=== PATIENT | male | born 1980 | race African-American/Black ===

== ENCOUNTER 2016-09-10 08:32 | Inpatient (IN) | payer OTHER ==
[~2016-09-10] VITALS: Ht 170.2 cm; Wt 103.0 kg
[2016-09-10] VITALS (16 sets, daily range): BP systolic 116–152; BP diastolic 62–90
[~2016-09-10 08:32] MED LIST: METO25TA4 PO
[2016-09-10] MEDS ORDERED: DEXTROSE 50% 25 GM / 50ML DISP.SYRIN. IV PRN (09:15)
[2016-09-10] MEDS ORDERED: 0.9 % SODIUM CHLORIDE 10 ML DISP.SYRIN. IV PRN ×3 (09:15→19:00)
[2016-09-10] MEDS: SODIUM BICARBONATE VIAL 150 MEQ in IV STERILE WATER 1,000 ML IV SCH ×2 (09:53→21:04)
[2016-09-10] MEDS: PIPERACILLIN/TAZOBACTAM 3.375 GM in IV NORMAL SALINE 50ML 50 ML IV SCH ×3 (09:54→18:00)
[2016-09-10] MEDS: MORPHINE SULFATE 2 MG/ML DISP.SYRIN. IV PRN ×2 (11:07→21:24)
--- NOTE | 2016-09-10 11:17 | HP ---
ADMIT DATE: 09/10/2016 CHIEF COMPLAINT: Pancreatitis, DKA. HISTORY OF PRESENT ILLNESS: The patient is a 36-year-old -French gentleman with past medical history of diabetes and pancreatitis, both of which were diagnosed in 2013 with DKA, bringing him to the ICU at the time. He had been doing well in the meantime. However, over the past week or so, he had diffuse abdominal pain, more in the pelvic area, but also mid abdomen. Appetite was off. He denied any nausea or vomiting, denied any diarrhea, denied any fever or chills. However, when he has pain, especially in umbilical area became severe. He presented to his primary care physician, Dr. Guardado, and was referred to [facility] [place], where he was admitted with DKA, pancreatitis. He was found with massive triglyceridemia, which is the underlying cause of his pancreatitis. He was found with massive metabolic acidosis, a pH of 7.1 and CO2 less than 5, prompting bicarbonate drip. However, without improvement, the patient was transferred to [facility] for further management and care. PAST MEDICAL HISTORY: Diabetes mellitus, on oral agents and history of pancreatitis in 2013. FAMILY HISTORY: Diabetes and no GI issues. SOCIAL HISTORY: Lives with his and 2 children, currently a student at [employer]. Smokes marijuana, denies any alcohol use, however, have to nonalcoholic beers last Sunday. Smokes less than 1 pack a day, admits to marijuana. ALLERGIES: No known drug allergies. MEDICATIONS: MAR reconciled with medication list. REVIEW OF SYSTEMS: Still has abdominal pain, worsening now that he is off fentanyl drip. He states he is very hungry, has not eaten since Sunday. Denies any other symptoms in rest of organ system review. PHYSICAL EXAMINATION: VITAL SIGNS: From today show a blood pressure of 122/72, heart rate at 110. He is afebrile. GENERAL: This is a well-nourished, well-developed, 36-year-old -French gentleman, alert and oriented, in no acute distress. HEENT: Shows no scleral icterus. NECK: Supple. LUNGS: Clear to auscultation bilaterally. HEART: Slightly tachycardic. ABDOMEN: Minimal tenderness to palpation in the periumbilical area and some in pelvis bilaterally. EXTREMITIES: Show no edema. SKIN: Warm, soft and dry without any rash. LABORATORY DATA: From this morning at [facility] [place] show a BUN and creatinine of 17 and 1.2, sodium of 140, potassium 5.1, chloride at 106, CO2 at 11, lipase at 1107. CBC with WBC of 16.5, hemoglobin 16.6 and platelets of 155. Calcium at 8.8, mag at 2.7. ASSESSMENT AND PLAN: The patient is a 36-year-old gentleman with severe metabolic acidosis persisting. This may be related to diabetic ketoacidosis versus pancreatitis. He has been on bicarbonate, will continue here. Renal function actually seems to have improved over the past couple of days with fluid hydration. We will obtain renal consult to help manage. Pancreatitis is persistent by numbers. He will be kept n.p.o. We will start a central line and start him on TPN as I suspect this will be prolonged. Etiology is most likely is his hypertriglyceridemia. This will be addressed with oral medications, once he has recovered from the acute injury. Acute kidney injury, possibly on chronic kidney disease secondary to diabetes, question hypertension. Creatinine currently is 1.2. We will monitor labs serially. Prophylaxis will be obtained with IV H2 rosalba as well as Lovenox subcutaneously. MAHOGANY TERAN MD DR: ALYSSA/jasmina JOB#: [id number] / [id number] YANIRA
[2016-09-10] MEDS: INSULIN ASPART 300 UNITS/3 ML INSULN.PEN SQ SCH ×2 (12:00→17:00)
[2016-09-10] MEDS ORDERED: ONDANSETRON PF 4 MG/2 ML VIAL. IV PRN (12:45)
[2016-09-10] MEDS ORDERED: TPN PER PHARMACY MC PRN (12:45)
[2016-09-10] MEDS: HEPARIN PF for SUB-Q USE 5,000 UNIT/0.5 ML VIAL. SQ SCH ×2 (14:00→21:13)
[2016-09-10 17:47] LABS: CALCIUM 8.8 mg/dL (8.5-10.1); CREATININE 1.2 mg/dL (0.7-1.3); GFR 82.9; POTASSIUM 4.4 mmol/L (3.5-5.1)
[2016-09-10] MEDS ORDERED: INSULIN DETEMIR 300 UNITS/3 ML INSULN.PEN. SQ SCH (21:00)
[2016-09-10] MEDS ORDERED: DEXTROSE 70% IV SCH ×8 (22:00)
[2016-09-10] MEDS ORDERED: [UNRECOGNIZED DRUG - OTHER] IV SCH ×8 (22:00)
[2016-09-10] MEDS ORDERED: AMINO ACIDS IV SCH ×8 (22:00)
[2016-09-10] MEDS ORDERED: TOTAL PARENTERAL NUTRITION IV SCH ×8 (22:00)
--- NOTE | 2016-09-10 22:30 | CONS ---
DATE OF CONSULTATION: 09/10/2016 REQUESTING PHYSICIAN: Hospitalist. REASON FOR CONSULTATION: Renal failure and metabolic acidosis. HISTORY OF PRESENT ILLNESS: This is a 36-year-old -Danish with history of pancreatitis secondary to hypertriglyceridemia. He has developed diabetes mellitus, which is apparently insulin dependent. He has been admitted to [facility] with diabetic ketoacidosis and pancreatitis in the setting of massive hypertriglyceridemia. Due to ongoing metabolic acidosis and renal failure, the patient was transferred to this facility. The patient's initial serum bicarbonate was less than 5, pH of 7.1. PAST MEDICAL HISTORY: 1. Diabetes mellitus. 2. Pancreatitis. ALLERGIES: None. MEDICATIONS: Noted. FAMILY HISTORY: Noncontributory other than diabetes mellitus. SOCIAL HISTORY: The patient is , resides with his and 2 children. Student at [employer]. Smokes marijuana. Denies alcohol use, smokes less than a pack a day. Previously incarcerated. REVIEW OF SYSTEMS: No headaches, sinus problem, nasal drainage, epistaxis, change in vision or hearing. No difficulty swallowing. No fever, chills, cough, sputum production, or hemoptysis. No chest pain, shortness of breath, PND or orthopnea, dyspnea on exertion. He has some abdominal discomfort. He has nausea, vomiting. No seizure or malignancies. PHYSICAL EXAMINATION: GENERAL: The patient is awake, conversant. He is tearful. HEENT: Clear. NECK: No increased JVD. No thyromegaly, mass or adenopathy. LUNGS: Clear. CARDIAC: Without S3 or rub. ABDOMEN: Obese, tenderness minimal throughout. EXTREMITIES: Without edema. NEUROLOGIC: Nonfocal, no localizing. PSYCHIATRIC: Tearful. LABORATORY DATA: BUN 17, creatinine 1.2, CO2 of 11, anion gap 14. Lactic ____ 0.6. Calcium 9.3, LDH 833, CK is 746, albumin 1.9, triglycerides 632 and amylase ____ and lipase 63. IMPRESSION: 1. Renal failure -- acute prerenal state. Also may have acute tubular necrosis in the setting of pancreatitis. 2. Metabolic acidosis secondary to renal failure. 3. Rhabdomyolysis. 4. Hypertriglyceridemia. RECOMMENDATIONS: 1. IV fluid administration includes sodium bicarbonate. 2. Maintain glucose control. 3. Elective renal imaging. 4. We will follow. LESLEE REZA MD DR: ERIC/jasmina JOB#: [id number] / [id number]
[2016-09-11] VITALS (11 sets, daily range): BP systolic 110–146; BP diastolic 64–78
[2016-09-11] MEDS: PIPERACILLIN/TAZOBACTAM 3.375 GM in IV NORMAL SALINE 50ML 50 ML IV SCH (05:47)
[2016-09-11] MEDS: HEPARIN PF for SUB-Q USE 5,000 UNIT/0.5 ML VIAL. SQ SCH (05:48)
[2016-09-11 06:05] LABS: BASO # 0.1 x10^3/uL (0.0-0.2); BASO % 1 % (0-3); EOS % 1 % (0-3); HEMATOCRIT 40.7 % (39.0-53.0); HEMOGLOBIN 14.1 g/dL (13.0-17.5); LYMPH # 1.8 x10^3/uL (1.0-4.8); LYMPH % 14 % (24-48); MEAN CORPUSCULAR HEMOGLOBIN 30 pg (25-35); MEAN CORPUSCULAR HGB CONC 35 g/dL (31-37); MEAN CORPUSCULAR VOLUME 86 fL (79-100); MONO % 8 % (0-9); NEUT % 76 % (31-73); PLATELET COUNT 186 x10^3/uL (140-400); RED BLOOD COUNT 4.73 x10^6/uL (4.30-5.70); RED CELL DISTRIBUTION WIDTH 15.4 % (11.5-14.5); WHITE BLOOD COUNT 13.2 x10^3/uL (4.0-11.0)
[2016-09-11 06:33] LABS: ALBUMIN 2.8 g/dL (3.4-5.0); ALBUMIN/GLOBULIN RATIO 0.7 (1.0-1.7); CALCIUM 8.4 mg/dL (8.5-10.1); CREATININE 1.2 mg/dL (0.7-1.3); GFR 82.9; PHOSPHORUS 2.6 mg/dL (2.6-4.7); POTASSIUM 3.9 mmol/L (3.5-5.1); TOTAL BILIRUBIN 0.6 mg/dL (0.2-1.0); TOTAL PROTEIN 6.6 g/dL (6.4-8.2)
[2016-09-11] MEDS: SODIUM BICARBONATE VIAL 150 MEQ in IV STERILE WATER 1,000 ML IV SCH (07:46)
[2016-09-11] MEDS: INSULIN ASPART 300 UNITS/3 ML INSULN.PEN SQ SCH (07:53)
[2016-09-11] MEDS ORDERED: POTASSIUM CL 20MEQ-0.45% NACL 1,000 ML IV SCH (08:45)
--- NOTE | 2016-09-11 09:58 | PDOC ---
PROGRESS NOTES Chief Complaint Chief Complaint Pancreatitis Metabolic acidosis ASSESSMENT AND PLAN: 1. Metabolic acidosis: severe at transfer; resolving post high bicarb gtt. switch to 1/2NS 2. DKA: ketones in urine at initial presentation, with rel mild hyperglycemia ; now resolving 3. Hyperglycemia: not well controlled yet. started on levemir here with ISS. oral meds at home 4. Pancreatitis: 2/2 hypertriglyceridemia. persisting, with some improvement of lipase. cont NPO. of note, had pancreatitis 3 yrs ago 5. Pain control: on fentanyl gtt/[employer] on arrival yesterday; on morphine PRN now 6. Hypertriglyceridemia: start oral meds when full PO established 7. DANIELLA: creat improving with ongoing IVF 8. Tachycardia: mild. with stable BPs, monitor for now. ?reactive 9. Prophylaxis: lovenox, PPI 10 Psych: insisting on eating or threatening to leave AMA. volatile temper. transfer service to Dr Romeo History of Present Illness History of Present Illness throwing temper tantrum over eating, feeling diss.ed because he was told it would be stupid of him to destroy the improvements he has made over the past 24hrs with eating too soon. refusing exam Vitals Vitals Vital Signs Date Time Temp Pulse Resp B/P (MAP) Pulse Ox O2 Delivery O2 Flow Rate FiO2 09/11/16 08:42 108 20 115/64 (81) 98 Room Air 09/11/16 07:00 97.9 97.9 Physical Exam Physical Exam refusing exam Lungs: Other Labs LABS Laboratory Tests Test 09/10/16 12:14 09/10/16 15:15 09/10/16 17:16 09/10/16 21:06 Glucose (Fingerstick) 167 mg/dL (70-99) 192 mg/dL (70-99) 132 mg/dL (70-99) Sodium Level 139 mmol/L (136-145) Potassium Level 4.4 mmol/L (3.5-5.1) Chloride Level 102 mmol/L (98-107) Carbon Dioxide Level 20 mmol/L (21-32) Anion Gap 17 (6-14) Blood Urea Nitrogen 18 mg/dL (8-26) Creatinine 1.2 mg/dL (0.7-1.3) Estimated GFR (Cockcroft-Gault) 82.9 Glucose Level 200 mg/dL (70-99) Calcium Level 8.8 mg/dL (8.5-10.1) Test 09/11/16 05:55 09/11/16 07:50 White Blood Count 13.2 x10^3/uL (4.0-11.0) Red Blood Count 4.73 x10^6/uL (4.30-5.70) Hemoglobin 14.1 g/dL (13.0-17.5) Hematocrit 40.7 % (39.0-53.0) Mean Corpuscular Volume 86 fL (79-100) Mean Corpuscular Hemoglobin 30 pg (25-35) Mean Corpuscular Hemoglobin Concent 35 g/dL (31-37) Red Cell Distribution Width 15.4 % (11.5-14.5) Platelet Count 186 x10^3/uL (140-400) Neutrophils (%) (Auto) 76 % (31-73) Lymphocytes (%) (Auto) 14 % (24-48) Monocytes (%) (Auto) 8 % (0-9) Eosinophils (%) (Auto) 1 % (0-3) Basophils (%) (Auto) 1 % (0-3) Neutrophils # (Auto) 10.1 x10^3uL (1.8-7.7) Lymphocytes # (Auto) 1.8 x10^3/uL (1.0-4.8) Monocytes # (Auto) 1.0 x10^3/uL (0.0-1.1) Eosinophils # (Auto) 0.2 x10^3/uL (0.0-0.7) Basophils # (Auto) 0.1 x10^3/uL (0.0-0.2) Sodium Level 137 mmol/L (136-145) Potassium Level 3.9 mmol/L (3.5-5.1) Chloride Level 99 mmol/L (98-107) Carbon Dioxide Level 24 mmol/L (21-32) Anion Gap 14 (6-14) Blood Urea Nitrogen 19 mg/dL (8-26) Creatinine 1.2 mg/dL (0.7-1.3) Estimated GFR (Cockcroft-Gault) 82.9 BUN/Creatinine Ratio 16 (6-20) Glucose Level 217 mg/dL (70-99) Calcium Level 8.4 mg/dL (8.5-10.1) Phosphorus Level 2.6 mg/dL (2.6-4.7) Magnesium Level 2.0 mg/dL (1.8-2.4) Total Bilirubin 0.6 mg/dL (0.2-1.0) Aspartate Amino Transf (AST/SGOT) 11 U/L (15-37) Alanine Aminotransferase (ALT/SGPT) 22 U/L (16-63) Alkaline Phosphatase 71 U/L (46-116) Total Protein 6.6 g/dL (6.4-8.2) Albumin 2.8 g/dL (3.4-5.0) Albumin/Globulin Ratio 0.7 (1.0-1.7) Lipase 771 U/L (73-393) Glucose (Fingerstick) 271 mg/dL (70-99) Comment Review of Relevant I have reviewed the following items verónica (where applicable) has been applied. Labs Laboratory Tests Test 09/10/16 08:55 09/10/16 12:14 09/10/16 15:15 09/10/16 17:16 Glucose (Fingerstick) 145 mg/dL (70-99) 167 mg/dL (70-99) 192 mg/dL (70-99) Sodium Level 139 mmol/L (136-145) Potassium Level 4.4 mmol/L (3.5-5.1) Chloride Level 102 mmol/L (98-107) Carbon Dioxide Level 20 mmol/L (21-32) Anion Gap 17 (6-14) Blood Urea Nitrogen 18 mg/dL (8-26) Creatinine 1.2 mg/dL (0.7-1.3) Estimated GFR (Cockcroft-Gault) 82.9 Glucose Level 200 mg/dL (70-99) Calcium Level 8.8 mg/dL (8.5-10.1) Test 09/10/16 21:06 09/11/16 05:55 09/11/16 07:50 Glucose (Fingerstick) 132 mg/dL (70-99) 271 mg/dL (70-99) White Blood Count 13.2 x10^3/uL (4.0-11.0) Red Blood Count 4.73 x10^6/uL (4.30-5.70) Hemoglobin 14.1 g/dL (13.0-17.5) Hematocrit 40.7 % (39.0-53.0) Mean Corpuscular Volume 86 fL (79-100) Mean Corpuscular Hemoglobin 30 pg (25-35) Mean Corpuscular Hemoglobin Concent 35 g/dL (31-37) Red Cell Distribution Width 15.4 % (11.5-14.5) Platelet Count 186 x10^3/uL (140-400) Neutrophils (%) (Auto) 76 % (31-73) Lymphocytes (%) (Auto) 14 % (24-48) Monocytes (%) (Auto) 8 % (0-9) Eosinophils (%) (Auto) 1 % (0-3) Basophils (%) (Auto) 1 % (0-3) Neutrophils # (Auto) 10.1 x10^3uL (1.8-7.7) Lymphocytes # (Auto) 1.8 x10^3/uL (1.0-4.8) Monocytes # (Auto) 1.0 x10^3/uL (0.0-1.1) Eosinophils # (Auto) 0.2 x10^3/uL (0.0-0.7) Basophils # (Auto) 0.1 x10^3/uL (0.0-0.2) Sodium Level 137 mmol/L (136-145) Potassium Level 3.9 mmol/L (3.5-5.1) Chloride Level 99 mmol/L (98-107) Carbon Dioxide Level 24 mmol/L (21-32) Anion Gap 14 (6-14) Blood Urea Nitrogen 19 mg/dL (8-26) Creatinine 1.2 mg/dL (0.7-1.3) Estimated GFR (Cockcroft-Gault) 82.9 BUN/Creatinine Ratio 16 (6-20) Glucose Level 217 mg/dL (70-99) Calcium Level 8.4 mg/dL (8.5-10.1) Phosphorus Level 2.6 mg/dL (2.6-4.7) Magnesium Level 2.0 mg/dL (1.8-2.4) Total Bilirubin 0.6 mg/dL (0.2-1.0) Aspartate Amino Transf (AST/SGOT) 11 U/L (15-37) Alanine Aminotransferase (ALT/SGPT) 22 U/L (16-63) Alkaline Phosphatase 71 U/L (46-116) Total Protein 6.6 g/dL (6.4-8.2) Albumin 2.8 g/dL (3.4-5.0) Albumin/Globulin Ratio 0.7 (1.0-1.7) Lipase 771 U/L (73-393) Laboratory Tests Test 09/10/16 12:14 09/10/16 15:15 09/10/16 17:16 09/10/16 21:06 Glucose (Fingerstick) 167 mg/dL (70-99) 192 mg/dL (70-99) 132 mg/dL (70-99) Sodium Level 139 mmol/L (136-145) Potassium Level 4.4 mmol/L (3.5-5.1) Chloride Level 102 mmol/L (98-107) Carbon Dioxide Level 20 mmol/L (21-32) Anion Gap 17 (6-14) Blood Urea Nitrogen 18 mg/dL (8-26) Creatinine 1.2 mg/dL (0.7-1.3) Estimated GFR (Cockcroft-Gault) 82.9 Glucose Level 200 mg/dL (70-99) Calcium Level 8.8 mg/dL (8.5-10.1) Test 09/11/16 05:55 09/11/16 07:50 White Blood Count 13.2 x10^3/uL (4.0-11.0) Red Blood Count 4.73 x10^6/uL (4.30-5.70) Hemoglobin 14.1 g/dL (13.0-17.5) Hematocrit 40.7 % (39.0-53.0) Mean Corpuscular Volume 86 fL (79-100) Mean Corpuscular Hemoglobin 30 pg (25-35) Mean Corpuscular Hemoglobin Concent 35 g/dL (31-37) Red Cell Distribution Width 15.4 % (11.5-14.5) Platelet Count 186 x10^3/uL (140-400) Neutrophils (%) (Auto) 76 % (31-73) Lymphocytes (%) (Auto) 14 % (24-48) Monocytes (%) (Auto) 8 % (0-9) Eosinophils (%) (Auto) 1 % (0-3) Basophils (%) (Auto) 1 % (0-3) Neutrophils # (Auto) 10.1 x10^3uL (1.8-7.7) Lymphocytes # (Auto) 1.8 x10^3/uL (1.0-4.8) Monocytes # (Auto) 1.0 x10^3/uL (0.0-1.1) Eosinophils # (Auto) 0.2 x10^3/uL (0.0-0.7) Basophils # (Auto) 0.1 x10^3/uL (0.0-0.2) Sodium Level 137 mmol/L (136-145) Potassium Level 3.9 mmol/L (3.5-5.1) Chloride Level 99 mmol/L (98-107) Carbon Dioxide Level 24 mmol/L (21-32) Anion Gap 14 (6-14) Blood Urea Nitrogen 19 mg/dL (8-26) Creatinine 1.2 mg/dL (0.7-1.3) Estimated GFR (Cockcroft-Gault) 82.9 BUN/Creatinine Ratio 16 (6-20) Glucose Level 217 mg/dL (70-99) Calcium Level 8.4 mg/dL (8.5-10.1) Phosphorus Level 2.6 mg/dL (2.6-4.7) Magnesium Level 2.0 mg/dL (1.8-2.4) Total Bilirubin 0.6 mg/dL (0.2-1.0) Aspartate Amino Transf (AST/SGOT) 11 U/L (15-37) Alanine Aminotransferase (ALT/SGPT) 22 U/L (16-63) Alkaline Phosphatase 71 U/L (46-116) Total Protein 6.6 g/dL (6.4-8.2) Albumin 2.8 g/dL (3.4-5.0) Albumin/Globulin Ratio 0.7 (1.0-1.7) Lipase 771 U/L (73-393) Glucose (Fingerstick) 271 mg/dL (70-99) Medications Current Medications Heparin Sodium (Porcine) 5,000 unit Q8HRS SQ Last administered on 09/11/16t 05: 48; Start 09/10/16 at 14:00 Sodium Chloride (Normal Saline Flush) 3 ml QSHIFT PRN IV AFTER MEDS AND BLOOD DRAWS; Start 09/10/16 at 09:15 Morphine Sulfate 2 mg PRN Q1HR PRN IV PAIN Last administered on 09/10/16 21:24 ; Start 09/10/16 at 09:15 Insulin Aspart (NovoLOG) 0-9 UNITS TIDWMEALS SQ Last administered on 09/11/16 07:53; Start 09/10/16 at 12:00 Dextrose (Dextrose 50%-Water Syringe) 12.5 gm PRN Q15MIN PRN IV SEE COMMENTS; Start 09/10/16 at 09:15 Piperacillin Sod/ Tazobactam Sod 3.375 gm/Sodium Chloride 50 ml @ 100 mls/hr Q6HRS IV Last administered on 09/11/16 05:47; Start 09/10/16 at 10:00 Sodium Bicarbonate 150 meq/Sterile Water 1,150 ml @ 125 mls/hr Q9H12M IV Last administered on 09/11/16 07:46; Start 09/10/16 at 10:00; Stop 09/11/16 at 08:40 ; Status DC Info 1 each PRN DAILY PRN MC SEE COMMENTS Last administered on 09/10/16 14:54 ; Start 09/10/16 at 12:45 Lorazepam (Ativan) 0.5 mg Q6HRS PRN IV ANXIETY / AGITATION Last administered on 09/10/16 14:10; Start 09/10/16 at 12:45 Ondansetron HCl (Zofran) 4 mg PRN Q6HRS PRN IV NAUSEA/VOMITING; Start 09/10/16 at 12:45 Sodium Chloride 90 meq/Sodium Phosphate 10 mmol/ Magnesium Sulfate 5 meq/ Calcium Gluconate 10 meq/ Multivitamins 10 ml/Chromium/ Copper/Manganese/ Seleni /Zn 1 ml/ Total Parenteral Nutrition/Amino Acids/Dextrose 1,512 ml @ 63 mls/hr TPN CONT IV Last administered on 09/10/16 21:04; Start 09/10/16 at 22:00; Stop 09/11/16 at 21:59 Sodium Chloride (Normal Saline Flush) 10 ml QSHIFT PRN IV AFTER MEDS AND BLOOD DRAWS; Start 09/10/16 at 19:00 Sodium Chloride (Normal Saline Flush) 20 ml QSHIFT PRN IV AFTER MEDS AND BLOOD DRAWS; Start 09/10/16 at 19:00 Insulin Detemir (Levemir) 10 units QHS SQ ; Start 09/10/16 at 21:00 Potassium Chloride/Sodium Chloride 1,000 ml @ 75 mls/hr [id number] IV Last administered on 09/11/16t 09:38; Start 09/11/16 at 08:45 Active Scripts Active Reported Metoprolol Tartrate 25 Mg Tablet 1 Tab PO BID Vitals/I & O Vital Sign - Last 24 Hours 09/10/16 09/10/16 09/10/16 09/10/16 10:00 11:00 11:07 12:00 Pulse 116 96 108 Resp 20 22 20 22 B/P (MAP) 152/87 (108) 138/86 (103) 138/90 (106) O2 Delivery Room Air Room Air Room Air 09/10/16 09/10/16 09/10/16 09/10/16 13:00 14:00 15:00 16:00 Temp 97.8 97.8 Pulse 90 97 98 108 Resp 22 B/P (MAP) 132/86 (101) 137/81 (99) 117/62 (80) 137/72 (93) O2 Delivery Room Air Room Air Room Air 09/10/16 09/10/16 09/10/16 09/10/16 17:00 18:00 19:00 20:00 Temp 98.0 98.0 Pulse 109 104 103 98 Resp 20 22 20 20 B/P (MAP) 134/85 (101) 116/74 (88) 136/75 (95) 133/70 (91) Pulse Ox 99 99 O2 Delivery Room Air Room Air Room Air 09/10/16 09/10/16 09/10/16 09/10/16 21:00 21:24 21:54 22:00 Pulse 115 103 Resp 20 18 18 20 B/P (MAP) 130/69 (89) 116/82 (93) Pulse Ox 99 99 O2 Delivery Room Air Room Air Room Air Room Air 09/10/16 09/10/16 09/11/16 09/11/16 23:00 23:59 00:00 01:00 Temp 98.2 98.2 Pulse 99 100 99 Resp 20 20 20 B/P (MAP) 122/82 (95) 116/78 (91) 146/75 (98) Pulse Ox 99 97 99 O2 Delivery Room Air Room Air Room Air Room Air 09/11/16 09/11/16 09/11/16 09/11/16 02:00 03:00 04:00 04:00 Temp 98.3 98.3 Pulse 96 98 98 Resp 20 20 20 B/P (MAP) 133/70 (91) 132/64 (86) 116/68 (84) Pulse Ox 99 99 99 O2 Delivery Room Air Room Air Room Air Room Air 09/11/16 09/11/16 09/11/16 09/11/16 05:00 06:00 07:00 08:19 Temp 97.9 97.9 Pulse 98 88 102 Resp 20 20 18 B/P (MAP) 117/64 (81) 128/65 (86) 110/66 (81) Pulse Ox 99 99 97 O2 Delivery Room Air Room Air Room Air Room Air 09/11/16 08:42 Pulse 108 Resp 20 B/P (MAP) 115/64 (81) Pulse Ox 98 O2 Delivery Room Air Intake and Output 09/10/16 09/10/16 09/11/16 15:00 23:00 07:00 Intake Total 100 ml 90 ml 2550 ml Output Total 900 ml 1900 ml 1800 ml Balance -800 ml -1810 ml 750 ml MAHOGANY TERAN MD September 11, 2016 09:58
--- NOTE | 2016-09-11 10:10 | PDOC ---
SUBJECTIVE ROS DANIELLA/ Met Acidosis Doing well OBJECTIVE Vital Signs Vital Signs Date Time Temp Pulse Resp B/P (MAP) Pulse Ox O2 Delivery O2 Flow Rate FiO2 09/11/16 09:46 103 20 140/71 (94) 98 Room Air 09/11/16 07:00 97.9 97.9 I & 0 Intake and Output 09/11/16 07:00 Intake Total 2740 ml Output Total 4600 ml Balance -1860 ml Intake Oral 1390 ml IV Total 1350 ml Output Urine Total 4600 ml # Voids 1 PHYSICAL EXAM Physical Exam General Appearance: Awake: Alert Oriented x 2 Neck: No JVD or JVP Chest: CTA Tyson Heart: S1 S2 Abdomen - Soft Min TTP Extremities - No Edema DIAGNOSIS/ASSESSMENT Assessment & Plan DANIELLA - Resolved MEt ACidosis - watch off of Bicarb containing IVF - do not anticipate reccurance since FSBS as better now TPN defer to Pharmacy Will sign off - pl call with Qs Problems: COMMENT/RELEVANT DATA Meds Current Medications Medications (Trade) Dose Ordered Sig/Marifer Start Time Stop Time Status Last Admin Dose Admin Dextrose (Dextrose 50%-Water Syringe) 12.5 gm PRN Q15MIN PRN 09/10/16 09:15 Heparin Sodium (Porcine) 5,000 unit Q8HRS 09/10/16 14:00 09/11/16 05:48 5,000 UNIT Info 1 each PRN DAILY PRN 09/10/16 12:45 09/10/16 14:54 1 EACH Insulin Aspart (NovoLOG) 0-9 UNITS TIDWMEALS 09/10/16 12:00 09/11/16 07:53 7 UNITS Insulin Detemir (Levemir) 10 units QHS 09/10/16 21:00 Lorazepam (Ativan) 0.5 mg Q6HRS PRN 09/10/16 12:45 09/10/16 14:10 0.5 MG Morphine Sulfate 2 mg PRN Q1HR PRN 09/10/16 09:15 09/10/16 21:24 2 MG Ondansetron HCl (Zofran) 4 mg PRN Q6HRS PRN 09/10/16 12:45 Piperacillin Sod/ Tazobactam Sod 3.375 gm/Sodium Chloride 50 ml @ 100 mls/hr Q6HRS 09/10/16 10:00 09/11/16 05:47 100 MLS/HR Potassium Chloride/Sodium Chloride 1,000 ml @ 75 mls/hr [id number] 09/11/16 08:45 09/11/16 09:38 75 MLS/HR Sodium Bicarbonate 150 meq/Sterile Water 1,150 ml @ 125 mls/hr Q9H12M 09/10/16 10:00 09/11/16 08:40 DC 09/11/16 07:46 125 MLS/HR Sodium Chloride (Normal Saline Flush) 20 ml QSHIFT PRN 09/10/16 19:00 Sodium Chloride 90 meq/Sodium Phosphate 10 mmol/ Magnesium Sulfate 5 meq/Calcium Gluconate 10 meq/ Multivitamins 10 ml/Chromium/ Copper/Manganese/ Seleni/Zn 1 ml/ Total Parenteral Nutrition/Amino Acids/Dextrose 1,512 ml @ 63 mls/hr TPN CONT 09/10/16 22:00 09/11/16 21:59 09/10/16 21:04 63 MLS/HR Lab Laboratory Tests Test 09/10/16 12:14 09/10/16 15:15 09/10/16 17:16 09/10/16 21:06 Glucose (Fingerstick) 167 mg/dL (70-99) 192 mg/dL (70-99) 132 mg/dL (70-99) Sodium Level 139 mmol/L (136-145) Potassium Level 4.4 mmol/L (3.5-5.1) Chloride Level 102 mmol/L (98-107) Carbon Dioxide Level 20 mmol/L (21-32) Anion Gap 17 (6-14) Blood Urea Nitrogen 18 mg/dL (8-26) Creatinine 1.2 mg/dL (0.7-1.3) Estimated GFR (Cockcroft-Gault) 82.9 Glucose Level 200 mg/dL (70-99) Calcium Level 8.8 mg/dL (8.5-10.1) Test 09/11/16 05:55 09/11/16 07:50 White Blood Count 13.2 x10^3/uL (4.0-11.0) Red Blood Count 4.73 x10^6/uL (4.30-5.70) Hemoglobin 14.1 g/dL (13.0-17.5) Hematocrit 40.7 % (39.0-53.0) Mean Corpuscular Volume 86 fL (79-100) Mean Corpuscular Hemoglobin 30 pg (25-35) Mean Corpuscular Hemoglobin Concent 35 g/dL (31-37) Red Cell Distribution Width 15.4 % (11.5-14.5) Platelet Count 186 x10^3/uL (140-400) Neutrophils (%) (Auto) 76 % (31-73) Lymphocytes (%) (Auto) 14 % (24-48) Monocytes (%) (Auto) 8 % (0-9) Eosinophils (%) (Auto) 1 % (0-3) Basophils (%) (Auto) 1 % (0-3) Neutrophils # (Auto) 10.1 x10^3uL (1.8-7.7) Lymphocytes # (Auto) 1.8 x10^3/uL (1.0-4.8) Monocytes # (Auto) 1.0 x10^3/uL (0.0-1.1) Eosinophils # (Auto) 0.2 x10^3/uL (0.0-0.7) Basophils # (Auto) 0.1 x10^3/uL (0.0-0.2) Sodium Level 137 mmol/L (136-145) Potassium Level 3.9 mmol/L (3.5-5.1) Chloride Level 99 mmol/L (98-107) Carbon Dioxide Level 24 mmol/L (21-32) Anion Gap 14 (6-14) Blood Urea Nitrogen 19 mg/dL (8-26) Creatinine 1.2 mg/dL (0.7-1.3) Estimated GFR (Cockcroft-Gault) 82.9 BUN/Creatinine Ratio 16 (6-20) Glucose Level 217 mg/dL (70-99) Calcium Level 8.4 mg/dL (8.5-10.1) Phosphorus Level 2.6 mg/dL (2.6-4.7) Magnesium Level 2.0 mg/dL (1.8-2.4) Total Bilirubin 0.6 mg/dL (0.2-1.0) Aspartate Amino Transf (AST/SGOT) 11 U/L (15-37) Alanine Aminotransferase (ALT/SGPT) 22 U/L (16-63) Alkaline Phosphatase 71 U/L (46-116) Total Protein 6.6 g/dL (6.4-8.2) Albumin 2.8 g/dL (3.4-5.0) Albumin/Globulin Ratio 0.7 (1.0-1.7) Lipase 771 U/L (73-393) Glucose (Fingerstick) 271 mg/dL (70-99) TAMERA CURTIS MD September 11, 2016 10:10
--- NOTE | 2016-09-11 11:15 | PDOC ---
PROGRESS NOTES Subjective Subjective Irate Patient, very upset Objective Objective Vital Signs Date Time Temp Pulse Resp B/P (MAP) Pulse Ox O2 Delivery O2 Flow Rate FiO2 09/11/16 09:46 103 20 140/71 (94) 98 Room Air 09/11/16 07:00 97.9 97.9 Intake and Output 09/11/16 07:00 Intake Total 2740 ml Output Total 4600 ml Balance -1860 ml Intake Oral 1390 ml IV Total 1350 ml Output Urine Total 4600 ml # Voids 1 Physical Exam Physical Exam obese, gynecomastia no rash General: Other (agitated, tangential) Psych/Mental Status: Other (agitated, animated) Assessment Assessment ASSESSMENT AND PLAN: 1. Metabolic acidosis: severe 2. DKA: ketones in urine at initial presentation, with rel mild hyperglycemia ; now resolving 3. Hyperglycemia: not well controlled yet. started on levemir here with ISS. oral meds at home 4. Pancreatitis: 2/2 hypertriglyceridemia. persisting, with some improvement of lipase. cont NPO. of note, had pancreatitis 3 yrs ago 5. Pain control: on fentanyl gtt/[employer] on arrival yesterday; on morphine PRN now 6. Hypertriglyceridemia: start oral meds when full PO established 7. DANIELLA: creat improving with ongoing IVF 8. Tachycardia: mild. with stable BPs, monitor for now. 9 Psych: leave AMA. volatile temper. Plan Plan of Care I discussed with patient and family for over 30 minutes in ICU, 2 children, his and mother were in the room I was pretty much yelled at the entire time about how we "aren't doing anything " "aren't compassionate" Patient was angry and would not stop swearing in front of his elementary school- age children despite me asking him not to do so. I worked to find common ground and offered to change medical management in order for him to stay, he was more angry when I tried to do this. (this was a really awful 35 minutes for me) Time > 45min, critical care, pt will likely leave AMA, unacceptable risk of discussed with pt and family Comment Review of Relevant I have reviewed the following items verónica (where applicable) has been applied. Labs Laboratory Tests Test 09/10/16 08:55 09/10/16 12:14 09/10/16 15:15 09/10/16 17:16 Glucose (Fingerstick) 145 mg/dL (70-99) 167 mg/dL (70-99) 192 mg/dL (70-99) Sodium Level 139 mmol/L (136-145) Potassium Level 4.4 mmol/L (3.5-5.1) Chloride Level 102 mmol/L (98-107) Carbon Dioxide Level 20 mmol/L (21-32) Anion Gap 17 (6-14) Blood Urea Nitrogen 18 mg/dL (8-26) Creatinine 1.2 mg/dL (0.7-1.3) Estimated GFR (Cockcroft-Gault) 82.9 Glucose Level 200 mg/dL (70-99) Calcium Level 8.8 mg/dL (8.5-10.1) Test 09/10/16 21:06 09/11/16 05:55 09/11/16 07:50 Glucose (Fingerstick) 132 mg/dL (70-99) 271 mg/dL (70-99) White Blood Count 13.2 x10^3/uL (4.0-11.0) Red Blood Count 4.73 x10^6/uL (4.30-5.70) Hemoglobin 14.1 g/dL (13.0-17.5) Hematocrit 40.7 % (39.0-53.0) Mean Corpuscular Volume 86 fL (79-100) Mean Corpuscular Hemoglobin 30 pg (25-35) Mean Corpuscular Hemoglobin Concent 35 g/dL (31-37) Red Cell Distribution Width 15.4 % (11.5-14.5) Platelet Count 186 x10^3/uL (140-400) Neutrophils (%) (Auto) 76 % (31-73) Lymphocytes (%) (Auto) 14 % (24-48) Monocytes (%) (Auto) 8 % (0-9) Eosinophils (%) (Auto) 1 % (0-3) Basophils (%) (Auto) 1 % (0-3) Neutrophils # (Auto) 10.1 x10^3uL (1.8-7.7) Lymphocytes # (Auto) 1.8 x10^3/uL (1.0-4.8) Monocytes # (Auto) 1.0 x10^3/uL (0.0-1.1) Eosinophils # (Auto) 0.2 x10^3/uL (0.0-0.7) Basophils # (Auto) 0.1 x10^3/uL (0.0-0.2) Sodium Level 137 mmol/L (136-145) Potassium Level 3.9 mmol/L (3.5-5.1) Chloride Level 99 mmol/L (98-107) Carbon Dioxide Level 24 mmol/L (21-32) Anion Gap 14 (6-14) Blood Urea Nitrogen 19 mg/dL (8-26) Creatinine 1.2 mg/dL (0.7-1.3) Estimated GFR (Cockcroft-Gault) 82.9 BUN/Creatinine Ratio 16 (6-20) Glucose Level 217 mg/dL (70-99) Calcium Level 8.4 mg/dL (8.5-10.1) Phosphorus Level 2.6 mg/dL (2.6-4.7) Magnesium Level 2.0 mg/dL (1.8-2.4) Total Bilirubin 0.6 mg/dL (0.2-1.0) Aspartate Amino Transf (AST/SGOT) 11 U/L (15-37) Alanine Aminotransferase (ALT/SGPT) 22 U/L (16-63) Alkaline Phosphatase 71 U/L (46-116) Total Protein 6.6 g/dL (6.4-8.2) Albumin 2.8 g/dL (3.4-5.0) Albumin/Globulin Ratio 0.7 (1.0-1.7) Lipase 771 U/L (73-393) Laboratory Tests Test 09/10/16 12:14 09/10/16 15:15 09/10/16 17:16 09/10/16 21:06 Glucose (Fingerstick) 167 mg/dL (70-99) 192 mg/dL (70-99) 132 mg/dL (70-99) Sodium Level 139 mmol/L (136-145) Potassium Level 4.4 mmol/L (3.5-5.1) Chloride Level 102 mmol/L (98-107) Carbon Dioxide Level 20 mmol/L (21-32) Anion Gap 17 (6-14) Blood Urea Nitrogen 18 mg/dL (8-26) Creatinine 1.2 mg/dL (0.7-1.3) Estimated GFR (Cockcroft-Gault) 82.9 Glucose Level 200 mg/dL (70-99) Calcium Level 8.8 mg/dL (8.5-10.1) Test 09/11/16 05:55 09/11/16 07:50 White Blood Count 13.2 x10^3/uL (4.0-11.0) Red Blood Count 4.73 x10^6/uL (4.30-5.70) Hemoglobin 14.1 g/dL (13.0-17.5) Hematocrit 40.7 % (39.0-53.0) Mean Corpuscular Volume 86 fL (79-100) Mean Corpuscular Hemoglobin 30 pg (25-35) Mean Corpuscular Hemoglobin Concent 35 g/dL (31-37) Red Cell Distribution Width 15.4 % (11.5-14.5) Platelet Count 186 x10^3/uL (140-400) Neutrophils (%) (Auto) 76 % (31-73) Lymphocytes (%) (Auto) 14 % (24-48) Monocytes (%) (Auto) 8 % (0-9) Eosinophils (%) (Auto) 1 % (0-3) Basophils (%) (Auto) 1 % (0-3) Neutrophils # (Auto) 10.1 x10^3uL (1.8-7.7) Lymphocytes # (Auto) 1.8 x10^3/uL (1.0-4.8) Monocytes # (Auto) 1.0 x10^3/uL (0.0-1.1) Eosinophils # (Auto) 0.2 x10^3/uL (0.0-0.7) Basophils # (Auto) 0.1 x10^3/uL (0.0-0.2) Sodium Level 137 mmol/L (136-145) Potassium Level 3.9 mmol/L (3.5-5.1) Chloride Level 99 mmol/L (98-107) Carbon Dioxide Level 24 mmol/L (21-32) Anion Gap 14 (6-14) Blood Urea Nitrogen 19 mg/dL (8-26) Creatinine 1.2 mg/dL (0.7-1.3) Estimated GFR (Cockcroft-Gault) 82.9 BUN/Creatinine Ratio 16 (6-20) Glucose Level 217 mg/dL (70-99) Calcium Level 8.4 mg/dL (8.5-10.1) Phosphorus Level 2.6 mg/dL (2.6-4.7) Magnesium Level 2.0 mg/dL (1.8-2.4) Total Bilirubin 0.6 mg/dL (0.2-1.0) Aspartate Amino Transf (AST/SGOT) 11 U/L (15-37) Alanine Aminotransferase (ALT/SGPT) 22 U/L (16-63) Alkaline Phosphatase 71 U/L (46-116) Total Protein 6.6 g/dL (6.4-8.2) Albumin 2.8 g/dL (3.4-5.0) Albumin/Globulin Ratio 0.7 (1.0-1.7) Lipase 771 U/L (73-393) Glucose (Fingerstick) 271 mg/dL (70-99) Medications Current Medications Heparin Sodium (Porcine) 5,000 unit Q8HRS SQ Last administered on 09/11/16 05: 48; Start 09/10/16 at 14:00 Sodium Chloride (Normal Saline Flush) 3 ml QSHIFT PRN IV AFTER MEDS AND BLOOD DRAWS; Start 09/10/16 at 09:15 Morphine Sulfate 2 mg PRN Q1HR PRN IV PAIN Last administered on 09/10/16 21:24 ; Start 09/10/16 at 09:15 Insulin Aspart (NovoLOG) 0-9 UNITS TIDWMEALS SQ Last administered on 09/11/16 07:53; Start 09/10/16 at 12:00 Dextrose (Dextrose 50%-Water Syringe) 12.5 gm PRN Q15MIN PRN IV SEE COMMENTS; Start 09/10/16 at 09:15 Piperacillin Sod/ Tazobactam Sod 3.375 gm/Sodium Chloride 50 ml @ 100 mls/hr Q6HRS IV Last administered on 09/11/16 05:47; Start 09/10/16 at 10:00 Sodium Bicarbonate 150 meq/Sterile Water 1,150 ml @ 125 mls/hr Q9H12M IV Last administered on 09/11/16 07:46; Start 09/10/16 at 10:00; Stop 09/11/16 at 08:40 ; Status DC Info 1 each PRN DAILY PRN MC SEE COMMENTS Last administered on 09/10/16 14:54 ; Start 09/10/16 at 12:45 Lorazepam (Ativan) 0.5 mg Q6HRS PRN IV ANXIETY / AGITATION Last administered on 09/10/16 14:10; Start 09/10/16 at 12:45 Ondansetron HCl (Zofran) 4 mg PRN Q6HRS PRN IV NAUSEA/VOMITING; Start 09/10/16 at 12:45 Sodium Chloride 90 meq/Sodium Phosphate 10 mmol/ Magnesium Sulfate 5 meq/ Calcium Gluconate 10 meq/ Multivitamins 10 ml/Chromium/ Copper/Manganese/ Seleni /Zn 1 ml/ Total Parenteral Nutrition/Amino Acids/Dextrose 1,512 ml @ 63 mls/hr TPN CONT IV Last administered on 09/10/16 21:04; Start 09/10/16 at 22:00; Stop 09/11/16 at 21:59 Sodium Chloride (Normal Saline Flush) 10 ml QSHIFT PRN IV AFTER MEDS AND BLOOD DRAWS; Start 09/10/16 at 19:00 Sodium Chloride (Normal Saline Flush) 20 ml QSHIFT PRN IV AFTER MEDS AND BLOOD DRAWS; Start 09/10/16 at 19:00 Insulin Detemir (Levemir) 10 units QHS SQ ; Start 09/10/16 at 21:00 Potassium Chloride/Sodium Chloride 1,000 ml @ 75 mls/hr [id number] IV Last administered on 09/11/16 09:38; Start 09/11/16 at 08:45; Stop 09/11/16 at 10:10 ; Status DC Active Scripts Active Reported Metoprolol Tartrate 25 Mg Tablet 1 Tab PO BID Vitals/I & O Vital Sign - Last 24 Hours 09/10/16 09/10/16 09/10/16 09/10/16 12:00 13:00 14:00 15:00 Pulse 108 90 97 98 Resp 22 22 22 B/P (MAP) 138/90 (106) 132/86 (101) 137/81 (99) 117/62 (80) O2 Delivery Room Air Room Air Room Air 09/10/16 09/10/16 09/10/16 09/10/16 16:00 17:00 18:00 19:00 Temp 97.8 98.0 97.8 98.0 Pulse 108 109 104 103 Resp 22 20 22 20 B/P (MAP) 137/72 (93) 134/85 (101) 116/74 (88) 136/75 (95) Pulse Ox 99 O2 Delivery Room Air Room Air Room Air 09/10/16 09/10/16 09/10/16 09/10/16 20:00 21:00 21:24 21:54 Pulse 98 115 Resp 20 20 18 18 B/P (MAP) 133/70 (91) 130/69 (89) Pulse Ox 99 99 O2 Delivery Room Air Room Air Room Air Room Air 09/10/16 09/10/16 09/10/16 09/11/16 22:00 23:00 23:59 00:00 Temp 98.2 98.2 Pulse 103 99 100 Resp 20 20 20 B/P (MAP) 116/82 (93) 122/82 (95) 116/78 (91) Pulse Ox 99 99 97 O2 Delivery Room Air Room Air Room Air Room Air 09/11/16 09/11/16 09/11/16 09/11/16 01:00 02:00 03:00 04:00 Pulse 99 96 98 Resp 20 20 20 B/P (MAP) 146/75 (98) 133/70 (91) 132/64 (86) Pulse Ox 99 99 99 O2 Delivery Room Air Room Air Room Air Room Air 09/11/16 09/11/16 09/11/16 09/11/16 04:00 05:00 06:00 07:00 Temp 98.3 97.9 98.3 97.9 Pulse 98 98 88 102 Resp 20 20 20 18 B/P (MAP) 116/68 (84) 117/64 (81) 128/65 (86) 110/66 (81) Pulse Ox 99 99 99 97 O2 Delivery Room Air Room Air Room Air Room Air 09/11/16 09/11/16 09/11/16 08:19 08:42 09:46 Pulse 108 103 Resp 20 20 B/P (MAP) 115/64 (81) 140/71 (94) Pulse Ox 98 98 O2 Delivery Room Air Room Air Room Air Intake and Output 09/10/16 09/10/16 09/11/16 15:00 23:00 07:00 Intake Total 100 ml 90 ml 2550 ml Output Total 900 ml 1900 ml 1800 ml Balance -800 ml -1810 ml 750 ml KATHARINA YIP MD September 11, 2016 11:15
--- NOTE | 2016-09-11 13:51 | PDOC ---
G I PROGRESS NOTE Objective Patient left AMA prior to our seeing him. Review of Relevant I have reviewed the following items verónica (where applicable) has been applied. Labs Laboratory Tests Test 09/10/16 08:55 09/10/16 12:14 09/10/16 15:15 09/10/16 17:16 Glucose (Fingerstick) 145 mg/dL (70-99) 167 mg/dL (70-99) 192 mg/dL (70-99) Sodium Level 139 mmol/L (136-145) Potassium Level 4.4 mmol/L (3.5-5.1) Chloride Level 102 mmol/L (98-107) Carbon Dioxide Level 20 mmol/L (21-32) Anion Gap 17 (6-14) Blood Urea Nitrogen 18 mg/dL (8-26) Creatinine 1.2 mg/dL (0.7-1.3) Estimated GFR (Cockcroft-Gault) 82.9 Glucose Level 200 mg/dL (70-99) Calcium Level 8.8 mg/dL (8.5-10.1) Test 09/10/16 21:06 09/11/16 05:55 09/11/16 07:50 Glucose (Fingerstick) 132 mg/dL (70-99) 271 mg/dL (70-99) White Blood Count 13.2 x10^3/uL (4.0-11.0) Red Blood Count 4.73 x10^6/uL (4.30-5.70) Hemoglobin 14.1 g/dL (13.0-17.5) Hematocrit 40.7 % (39.0-53.0) Mean Corpuscular Volume 86 fL (79-100) Mean Corpuscular Hemoglobin 30 pg (25-35) Mean Corpuscular Hemoglobin Concent 35 g/dL (31-37) Red Cell Distribution Width 15.4 % (11.5-14.5) Platelet Count 186 x10^3/uL (140-400) Neutrophils (%) (Auto) 76 % (31-73) Lymphocytes (%) (Auto) 14 % (24-48) Monocytes (%) (Auto) 8 % (0-9) Eosinophils (%) (Auto) 1 % (0-3) Basophils (%) (Auto) 1 % (0-3) Neutrophils # (Auto) 10.1 x10^3uL (1.8-7.7) Lymphocytes # (Auto) 1.8 x10^3/uL (1.0-4.8) Monocytes # (Auto) 1.0 x10^3/uL (0.0-1.1) Eosinophils # (Auto) 0.2 x10^3/uL (0.0-0.7) Basophils # (Auto) 0.1 x10^3/uL (0.0-0.2) Sodium Level 137 mmol/L (136-145) Potassium Level 3.9 mmol/L (3.5-5.1) Chloride Level 99 mmol/L (98-107) Carbon Dioxide Level 24 mmol/L (21-32) Anion Gap 14 (6-14) Blood Urea Nitrogen 19 mg/dL (8-26) Creatinine 1.2 mg/dL (0.7-1.3) Estimated GFR (Cockcroft-Gault) 82.9 BUN/Creatinine Ratio 16 (6-20) Glucose Level 217 mg/dL (70-99) Calcium Level 8.4 mg/dL (8.5-10.1) Phosphorus Level 2.6 mg/dL (2.6-4.7) Magnesium Level 2.0 mg/dL (1.8-2.4) Total Bilirubin 0.6 mg/dL (0.2-1.0) Aspartate Amino Transf (AST/SGOT) 11 U/L (15-37) Alanine Aminotransferase (ALT/SGPT) 22 U/L (16-63) Alkaline Phosphatase 71 U/L (46-116) Total Protein 6.6 g/dL (6.4-8.2) Albumin 2.8 g/dL (3.4-5.0) Albumin/Globulin Ratio 0.7 (1.0-1.7) Lipase 771 U/L (73-393) Laboratory Tests Test 09/10/16 15:15 09/10/16 17:16 09/10/16 21:06 09/11/16 05:55 Sodium Level 139 mmol/L (136-145) 137 mmol/L (136-145) Potassium Level 4.4 mmol/L (3.5-5.1) 3.9 mmol/L (3.5-5.1) Chloride Level 102 mmol/L (98-107) 99 mmol/L (98-107) Carbon Dioxide Level 20 mmol/L (21-32) 24 mmol/L (21-32) Anion Gap 17 (6-14) 14 (6-14) Blood Urea Nitrogen 18 mg/dL (8-26) 19 mg/dL (8-26) Creatinine 1.2 mg/dL (0.7-1.3) 1.2 mg/dL (0.7-1.3) Estimated GFR (Cockcroft-Gault) 82.9 82.9 Glucose Level 200 mg/dL (70-99) 217 mg/dL (70-99) Calcium Level 8.8 mg/dL (8.5-10.1) 8.4 mg/dL (8.5-10.1) Glucose (Fingerstick) 192 mg/dL (70-99) 132 mg/dL (70-99) White Blood Count 13.2 x10^3/uL (4.0-11.0) Red Blood Count 4.73 x10^6/uL (4.30-5.70) Hemoglobin 14.1 g/dL (13.0-17.5) Hematocrit 40.7 % (39.0-53.0) Mean Corpuscular Volume 86 fL (79-100) Mean Corpuscular Hemoglobin 30 pg (25-35) Mean Corpuscular Hemoglobin Concent 35 g/dL (31-37) Red Cell Distribution Width 15.4 % (11.5-14.5) Platelet Count 186 x10^3/uL (140-400) Neutrophils (%) (Auto) 76 % (31-73) Lymphocytes (%) (Auto) 14 % (24-48) Monocytes (%) (Auto) 8 % (0-9) Eosinophils (%) (Auto) 1 % (0-3) Basophils (%) (Auto) 1 % (0-3) Neutrophils # (Auto) 10.1 x10^3uL (1.8-7.7) Lymphocytes # (Auto) 1.8 x10^3/uL (1.0-4.8) Monocytes # (Auto) 1.0 x10^3/uL (0.0-1.1) Eosinophils # (Auto) 0.2 x10^3/uL (0.0-0.7) Basophils # (Auto) 0.1 x10^3/uL (0.0-0.2) BUN/Creatinine Ratio 16 (6-20) Phosphorus Level 2.6 mg/dL (2.6-4.7) Magnesium Level 2.0 mg/dL (1.8-2.4) Total Bilirubin 0.6 mg/dL (0.2-1.0) Aspartate Amino Transf (AST/SGOT) 11 U/L (15-37) Alanine Aminotransferase (ALT/SGPT) 22 U/L (16-63) Alkaline Phosphatase 71 U/L (46-116) Total Protein 6.6 g/dL (6.4-8.2) Albumin 2.8 g/dL (3.4-5.0) Albumin/Globulin Ratio 0.7 (1.0-1.7) Lipase 771 U/L (73-393) Test 09/11/16 07:50 Glucose (Fingerstick) 271 mg/dL (70-99) Medications Current Medications Heparin Sodium (Porcine) 5,000 unit Q8HRS SQ Last administered on 09/11/16 05: 48; Start 09/10/16 at 14:00; Stop 09/11/16 at 13:34; Status DC Sodium Chloride (Normal Saline Flush) 3 ml QSHIFT PRN IV AFTER MEDS AND BLOOD DRAWS; Start 09/10/16 at 09:15; Stop 09/11/16 at 13:34; Status DC Morphine Sulfate 2 mg PRN Q1HR PRN IV PAIN Last administered on 09/10/16 21:24 ; Start 09/10/16 at 09:15; Stop 09/11/16 at 13:34; Status DC Insulin Aspart (NovoLOG) 0-9 UNITS TIDWMEALS SQ Last administered on 09/11/16 07:53; Start 09/10/16 at 12:00; Stop 09/11/16 at 13:34; Status DC Dextrose (Dextrose 50%-Water Syringe) 12.5 gm PRN Q15MIN PRN IV SEE COMMENTS; Start 09/10/16 at 09:15; Stop 09/11/16 at 13:34; Status DC Piperacillin Sod/ Tazobactam Sod 3.375 gm/Sodium Chloride 50 ml @ 100 mls/hr Q6HRS IV Last administered on 09/11/16 05:47; Start 09/10/16 at 10:00; Stop at 13:34; Status DC Sodium Bicarbonate 150 meq/Sterile Water 1,150 ml @ 125 mls/hr Q9H12M IV Last administered on 09/11/16 07:46; Start 09/10/16 at 10:00; Stop 09/11/16 at 08:40 ; Status DC Info 1 each PRN DAILY PRN MC SEE COMMENTS Last administered on 09/10/16 14:54 ; Start 09/10/16 at 12:45; Stop 09/11/16 at 13:34; Status DC Lorazepam (Ativan) 0.5 mg Q6HRS PRN IV ANXIETY / AGITATION Last administered on 09/10/16 14:10; Start 09/10/16 at 12:45; Stop 09/11/16 at 13:34; Status DC Ondansetron HCl (Zofran) 4 mg PRN Q6HRS PRN IV NAUSEA/VOMITING; Start 09/10/16 at 12:45; Stop 09/11/16 at 13:34; Status DC Sodium Chloride 90 meq/Sodium Phosphate 10 mmol/ Magnesium Sulfate 5 meq/ Calcium Gluconate 10 meq/ Multivitamins 10 ml/Chromium/ Copper/Manganese/ Seleni /Zn 1 ml/ Total Parenteral Nutrition/Amino Acids/Dextrose 1,512 ml @ 63 mls/hr TPN CONT IV Last administered on 09/10/16 21:04; Start 09/10/16 at 22:00; Stop 09/11/16 at 13:34; Status DC Sodium Chloride (Normal Saline Flush) 10 ml QSHIFT PRN IV AFTER MEDS AND BLOOD DRAWS; Start 09/10/16 at 19:00; Stop 09/11/16 at 13:34; Status DC Sodium Chloride (Normal Saline Flush) 20 ml QSHIFT PRN IV AFTER MEDS AND BLOOD DRAWS; Start 09/10/16 at 19:00; Stop 09/11/16 at 13:34; Status DC Insulin Detemir (Levemir) 10 units QHS SQ ; Start 09/10/16 at 21:00; Stop at 13:34; Status DC Potassium Chloride/Sodium Chloride 1,000 ml @ 75 mls/hr [id number] IV Last administered on 5/15/17at 09:38; Start 09/11/16 at 08:45; Stop 09/11/16 at 10:10 ; Status DC Active Scripts Active Reported Metoprolol Tartrate 25 Mg Tablet 1 Tab PO BID Vitals/I & O Vital Sign - Last 24 Hours 09/10/16 09/10/16 09/10/16 09/10/16 14:00 15:00 16:00 17:00 Temp 97.8 97.8 Pulse 97 98 108 109 Resp 20 22 22 20 B/P (MAP) 137/81 (99) 117/62 (80) 137/72 (93) 134/85 (101) O2 Delivery Room Air Room Air 09/10/16 09/10/16 09/10/16 09/10/16 18:00 19:00 20:00 21:00 Temp 98.0 98.0 Pulse 104 103 98 115 Resp 22 20 20 20 B/P (MAP) 116/74 (88) 136/75 (95) 133/70 (91) 130/69 (89) Pulse Ox 99 99 99 O2 Delivery Room Air Room Air Room Air Room Air 09/10/16 09/10/16 09/10/16 09/10/16 21:24 21:54 22:00 23:00 Pulse 103 99 Resp 18 18 20 20 B/P (MAP) 116/82 (93) 122/82 (95) Pulse Ox 99 99 O2 Delivery Room Air Room Air Room Air Room Air 09/10/16 09/11/16 09/11/16 09/11/16 23:59 00:00 01:00 02:00 Temp 98.2 98.2 Pulse 100 99 96 Resp 20 20 20 B/P (MAP) 116/78 (91) 146/75 (98) 133/70 (91) Pulse Ox 97 99 99 O2 Delivery Room Air Room Air Room Air Room Air 09/11/16 09/11/16 09/11/16 09/11/16 03:00 04:00 04:00 05:00 Temp 98.3 98.3 Pulse 98 98 98 Resp 20 20 20 B/P (MAP) 132/64 (86) 116/68 (84) 117/64 (81) Pulse Ox 99 99 99 O2 Delivery Room Air Room Air Room Air Room Air 09/11/16 09/11/16 09/11/16 09/11/16 06:00 07:00 08:19 08:42 Temp 97.9 97.9 Pulse 88 102 108 Resp 20 18 20 B/P (MAP) 128/65 (86) 110/66 (81) 115/64 (81) Pulse Ox 99 97 98 O2 Delivery Room Air Room Air Room Air Room Air 09/11/16 09:46 Pulse 103 Resp 20 B/P (MAP) 140/71 (94) Pulse Ox 98 O2 Delivery Room Air Intake and Output 09/10/16 09/10/16 09/11/16 15:00 23:00 07:00 Intake Total 100 ml 90 ml 2550 ml Output Total 900 ml 1900 ml 1800 ml Balance -800 ml -1810 ml 750 ml Problem List Hypertriglyceride-induced pancreatitis. Assessment If resurfaces, probably needs better compliance with DM and lipids. LESLEE ESCALERA MD September 11, 2016 13:51
--- NOTE | 2016-09-13 23:17 | DS ---
DATE OF DISCHARGE: 09/11/2016 CHIEF COMPLAINT: Pancreatitis, pericarditis, hypertriglyceridemia, DKA. HOSPITAL COURSE: The patient is a 36-year-old -[place] gentleman with recurrent pancreatitis, severe metabolic acidosis with DKA and hypertriglyceridemia ____ who presented in transfer from [facility]. Clinically, he was actually fairly stable despite his severe disorders. He was admitted to the ICU, was started on bicarb drip and insulin was given. He was placed on bowel rest. Further evaluations were planned, but the patient decided that he needed to leave the hospital as he felt ____. He therefore left AMA. PHYSICAL EXAMINATION: Please refer to note from same day. DISCHARGE DATE: 09/11/2016. DISCHARGE DISPOSITION: AMA. MAHOGANY TERAN MD DR: ALYSSA/nts JOB#: [id number] / [id number]
== END 2016-09-11 11:22 | disposition left against medical advice (07) | DRG 438 ==
LOC: 1 WEST ICU 08:32
PROVIDERS: ADMIT Internal Medicine Hematology & Oncology; ATTEND Internal Medicine Hematology & Oncology
DX: K85.90 Acute pancreatitis without necrosis or infection, unspecified (principal); E13.10 Other specified diabetes mellitus with ketoacidosis without coma; M62.82 Rhabdomyolysis; N17.9 Acute kidney failure, unspecified; E78.1 Pure hyperglyceridemia; F12.90 Cannabis use, unspecified, uncomplicated; F17.210 Nicotine dependence, cigarettes, uncomplicated; F91.8 Other conduct disorders; Z79.4 Long term (current) use of insulin; Z83.3 Family history of diabetes mellitus; Z87.19 Personal history of other diseases of the digestive system
CPT/HCPCS: 36415; 80048; 80053; 82947; 83036; 83690; 83735; 84100; 85027; J0610; J1815; J2060; J2270; J2543; J3475